=== PATIENT | female | born 1940 | race Caucasian/White ===

== ENCOUNTER → 2017-10-25 | Outpatient (CLI) | payer OTHER ==
[~2017-10-25] MED LIST: ACID CONTROLLER20 MG PO; ALBUTEROL0.63 MG/3 IH; AVALIDE 300-121 EACH PO; BETHANECHOL CHL50 MG PO; NORVASC5 MG PO; PLAVIX75 MG PO; SIMVASTATIN10 MG PO; SYMBICORT 16010.2 GM IH; TRAMADOL HCL50 MG PO; ZYRTEC10 M3 PO
== END | disposition home or self-care (01) ==
LOC: LAB 15:08
DX: D68.8 Other specified coagulation defects (principal)

== ENCOUNTER 2017-11-01 06:00 | Inpatient (IN) | payer OTHER ==
[~2017-11-01] VITALS: Ht 165.1 cm; Wt 83.9 kg
== END 2017-11-04 12:52 | disposition home or self-care (01) | DRG 331 ==
LOC: SURH → O/R 06:00 → SURH 07:00
PROVIDERS: Surgery
PROC: 07TC4ZZ Resection of Pelvis Lymphatic, Percutaneous Endoscopic Approach (ICD-10-PCS; 2017-11-01)
PROC: 3E0F7GC Introduction of Other Therapeutic Substance into Respiratory Tract, Via Natural or Artificial Opening (ICD-10-PCS; 2017-11-01)
PROC: 4A12X4Z Monitoring of Cardiac Electrical Activity, External Approach (ICD-10-PCS; 2017-11-01)
PROC: 0DTF4ZZ Resection of Right Large Intestine, Percutaneous Endoscopic Approach (ICD-10-PCS; principal; 2017-11-01 07:00)
DX: D12.2 Benign neoplasm of ascending colon (principal); I11.9 Hypertensive heart disease without heart failure; J44.9 Chronic obstructive pulmonary disease, unspecified; E66.8 Other obesity; E78.00 Pure hypercholesterolemia, unspecified; G47.33 Obstructive sleep apnea (adult) (pediatric); R73.01 Impaired fasting glucose

== ENCOUNTER 2018-06-16 06:45 | Emergency (ER) | payer OTHER ==
[~2018-06-16] VITALS: Ht 167.6 cm; Wt 83.0 kg
[2018-06-16] MEDS ORDERED: KEFLEX500 MG PO (10:21)
== END 2018-06-16 12:08 | disposition home or self-care (01) ==
LOC: ER 06:45
DX: N39.0 Urinary tract infection, site not specified (principal); M54.5 Low back pain

== ENCOUNTER 2022-10-02 08:17 | Outpatient (CLI) | payer OTHER ==
[~2022-10-02] VITALS: Ht 167.6 cm; Wt 83.9 kg
[~2022-10-02 08:17] MED LIST changes: +KEFLEX500 MG PO
[2022-10-02] MEDS ORDERED: CARVEDILOL6.25 MG (12:57)
== END 2022-10-02 08:37 | disposition home or self-care (01) ==
LOC: LAB 08:17
PROVIDERS: ATTEND Orthopaedic Surgery
DX: E55.9 Vitamin D deficiency, unspecified (principal); M85.9 Disorder of bone density and structure, unspecified; E56.1 Deficiency of vitamin K; D68.8 Other specified coagulation defects; N39.0 Urinary tract infection, site not specified; Z76.89 Persons encountering health services in other specified circumstances; E11.9 Type 2 diabetes mellitus without complications; I10 Essential (primary) hypertension; D64.89 Other specified anemias; E88.89 Other specified metabolic disorders; A49.02 Methicillin resistant Staphylococcus aureus infection, unspecified site; I49.9 Cardiac arrhythmia, unspecified

== ENCOUNTER 2022-10-08 10:15 | Inpatient (IN) | payer OTHER ==
[~2022-10-08] VITALS: Ht 152.4 cm; Wt 83.9 kg
[~2022-10-08 10:15] MED LIST changes: +CARVEDILOL6.25 MG
[2022-10-13] MEDS ORDERED: WIXELA 500-501 EACH (08:57)
[2022-10-13] MEDS ORDERED: GABAPENTIN100 M2 (08:57)
[2022-10-13] MEDS ORDERED: XARELTO10 M1 (08:57)
[2022-10-13] MEDS ORDERED: MYRBETRIQ25 MG (08:57)
[2022-10-13] MEDS ORDERED: METFORMIN HCL500 M4 (08:57)
[2022-10-13] MEDS ORDERED: VITAMIN D3125 MCG (08:57)
[2022-10-13] MEDS ORDERED: OXYBUTYNIN CHLOR5 M1 (08:58)
[2022-10-13] MEDS ORDERED: SPIRONOLACTONE25 MG (08:58)
[2022-10-19] MEDS ORDERED: ELIQUIS5 MG PO (12:04)
== END 2022-10-20 10:48 | disposition home or self-care (01) | DRG 470 ==
LOC: O/R 10-13 07:15 → SURH 10-13 10:15 → SURG 10-13 16:37
PROVIDERS: ADMIT Orthopaedic Surgery; ATTEND Orthopaedic Surgery
PROC: 0SRC0J9 Replacement of Right Knee Joint with Synthetic Substitute, Cemented, Open Approach (ICD-10-PCS; principal; 2022-10-13 10:15)
PROC: BW24YZZ Computerized Tomography (CT Scan) of Chest and Abdomen using Other Contrast (ICD-10-PCS; 2022-10-15)
PROC: 4A12X4Z Monitoring of Cardiac Electrical Activity, External Approach (ICD-10-PCS; 2022-10-15)
PROC: BW28ZZZ Computerized Tomography (CT Scan) of Head (ICD-10-PCS; 2022-10-17)
DX: M17.11 Unilateral primary osteoarthritis, right knee (principal); I26.99 Other pulmonary embolism without acute cor pulmonale; D62 Acute posthemorrhagic anemia; J45.901 Unspecified asthma with (acute) exacerbation; R09.02 Hypoxemia; I10 Essential (primary) hypertension; E11.9 Type 2 diabetes mellitus without complications; Z79.4 Long term (current) use of insulin; Z20.822 Contact with and (suspected) exposure to COVID-19; G47.33 Obstructive sleep apnea (adult) (pediatric); W13.3XXA Fall through floor, initial encounter; Y92.003 Bedroom of unspecified non-institutional (private) residence as the place of occurrence of the external cause

== ENCOUNTER → 2022-10-12 | Outpatient (CLI) | payer OTHER ==
[~2022-10-12] MED LIST changes: +GABAPENTIN100 M2; +METFORMIN HCL500 M4; +MYRBETRIQ25 MG; +OXYBUTYNIN CHLOR5 M1; +SPIRONOLACTONE25 MG; +VITAMIN D3125 MCG; +WIXELA 500-501 EACH; +XARELTO10 M1
== END | disposition home or self-care (01) ==
LOC: MRI 08:40
PROVIDERS: ATTEND Orthopaedic Surgery
DX: M85.661 Other cyst of bone, right lower leg (principal); M17.11 Unilateral primary osteoarthritis, right knee
CPT/HCPCS: 73721

== ENCOUNTER 2022-11-01 11:44 | Emergency (ER) | payer OTHER ==
[~2022-11-01] VITALS: Ht 167.6 cm; Wt 83.9 kg
[~2022-11-01 11:44] MED LIST changes: +ELIQUIS5 MG PO
== END 2022-11-01 15:20 | disposition home or self-care (01) ==
LOC: ER 11:44
DX: J45.909 Unspecified asthma, uncomplicated (principal); I10 Essential (primary) hypertension; Z88.6 Allergy status to analgesic agent; Z20.822 Contact with and (suspected) exposure to COVID-19